=== PATIENT | female | born 1990 | race Caucasian/White ===

== ENCOUNTER → 2018-04-29 12:23 | Observation (INO) ==
[2018-04-29 09:55] VITALS: BP 137/72
[2018-04-29 10:08] LABS: Basophils % 0.2 %; Eosinophils # 0.2 K/mcL (0.0-0.6); Eosinophils % 1.3 %; Hematocrit 36.1 % (35.3-44.9); Hemoglobin 11.6 g/dL (11.5-15.4); Immature Granulocytes % 1.7 % (0-4); Lymphocytes # 1.7 K/mcL (0.6-4.6); Lymphocytes % 13.6 %; Mean Corpuscular HGB Conc 32.1 g/dL (31.6-35.5); Mean Corpuscular Hemoglobin 26.5 pg (28.0-33.3); Mean Corpuscular Volume 82.4 fL (83.0-100.0); Monocytes # 0.7 K/mcL (0.0-1.3); Monocytes % 5.6 %; Neutrophils # 9.5 K/mcL (1.6-8.9); Platelet Count 253 K/mcL (140-400); Red Blood Count 4.38 M/mcL (3.82-4.97); Red Cell Distribution Width 16.9 % (11.5-14.5); Segmented Neutrophils % 77.6 %
[2018-04-29 10:30] LABS: Amphetamine Screen,Urine Negative ng/mL (Cutoff=1000); Barbiturate Screen,Urine Negative ng/mL (Cutoff=200); Benzodiazepines Screen,Urine Negative ng/mL (Cutoff=200); Cannabinoid Screen,Urine Negative ng/mL (Cutoff = 50); Cocaine Screen,Urine Negative ng/mL (Cutoff= 300); Opiate Screen,Urine Negative ng/mL (Cutoff=300); Phencyclidine Screen,Urine Negative ng/mL (Cutoff=25); Protein/Creatinine Ratio,Urine 0.11 mg/mg (0.00-0.20)
[2018-04-29 10:35] LABS: Alanine Aminotransferase 13 Units/L (7-52); Aspartate Amino Transferase 20 Units/L (13-39); BUN/Creatinine Ratio 16 (6-26); Blood Urea Nitrogen 7 mg/dL (6-20); Uric Acid 5.7 mg/dL (2.3-7.6); eGFR For African Americans > 60 (> 60); eGFR For Non-African Americans > 60 (> 60)
--- NOTE | 2018-04-29 11:34 | OB/GYN Progress Note ---
Date of Encounter: 04/29/18 Time of Encounter: 11:29 - Assessment and Plan (1) with 35 completed weeks gestation Current Visit: Yes Status: Acute Serial BPs WNL PIH labs WNL FHR baseline 130 Reactive NST Occasional contraction per toco Discharge home with PTL precaution and pre eclampsia precautions Follow up in office for routine appointment as scheduled Subjective - Subjective Interval history: at 35 weeks and 1 day gestation presents to triage with complaints increased BP, BURGER, and "seeing spots." Denies epigastric pain. No vaginal bleeding or loss of fluid, states baby moving well. Antepartum ROS: new complaints Objective - Vital Signs Vital Signs: Vital Signs Temp Pulse Resp BP 04/29/18 09:54 97.8 F 85 18 137/72 - Exam FHR: category 1 Auscultation: bilateral: normal Abdomen: Present: soft, gravid - Labs Labs: Abnormal lab results WBC 12.3 K/mcL (4.3-11.1) H 04/29/18 09:41 MCV 82.4 fL (83.0-100.0) L 04/29/18 09:41 MCH 26.5 pg (28.0-33.3) L 04/29/18 09:41 RDW 16.9 % (11.5-14.5) H 04/29/18 09:41 Neutrophils # 9.5 K/mcL (1.6-8.9) H 04/29/18 09:41 Creatinine 0.44 mg/dL (0.60-1.20) L 04/29/18 09:41 Urine Total Protein 17 mg/dL (1-14) H 04/29/18 09:41
[~2018-04-29 12:23] MED LIST: *HR* Labetalol 20 MG/4 ML SYRINGE IVP PRN; Betamethasone Acet/SodPhos 6 MG/ML MDV IM SCH
== END | disposition home or self-care (01) ==
LOC: 1NENULAB
PROVIDERS: ADMIT Student in an Organized Health Care Education/Training Program; ATTEND Student in an Organized Health Care Education/Training Program

== ENCOUNTER 2018-05-13 08:07 | Inpatient (IN) ==
[2018-05-13] MEDS ORDERED: Metoclopramide 10 MG/2 ML VIAL IVP ONE (08:40)
[2018-05-13] MEDS ORDERED: Oxytocin 20 units/ LR 1000 mL 20 UNIT/1,000 ML BAG IVC ONE (08:40)
[2018-05-13] MEDS ORDERED: Famotidine 20 MG/2 ML VIAL IVP ONE (08:40)
[2018-05-13] MEDS ORDERED: Ringers Solution, Lactated 1,000 ML IVC ONE (08:40)
[2018-05-13] MEDS ORDERED: Ringers Solution, Lactated 1,000 ML IVC SCH ×2 (08:45→11:15)
[2018-05-13] MEDS ORDERED: Ringers Solution, Lactated 1,000 ML ONE (08:47)
[2018-05-13 09:03] LABS: Basophils % 0.2 %; Eosinophils # 0.1 K/mcL (0.0-0.6); Hematocrit 37.6 % (35.3-44.9); Hemoglobin 12.5 g/dL (11.5-15.4); Lymphocytes # 2.2 K/mcL (0.6-4.6); Lymphocytes % 17.2 %; Mean Corpuscular HGB Conc 33.2 g/dL (31.6-35.5); Mean Corpuscular Hemoglobin 27.5 pg (28.0-33.3); Mean Corpuscular Volume 82.8 fL (83.0-100.0); Mean Platelet Volume 11.6 fL (9.4-12.4); Monocytes # 0.8 K/mcL (0.0-1.3); Monocytes % 6.3 %; Neutrophils # 9.4 K/mcL (1.6-8.9); Platelet Count 269 K/mcL (140-400); Red Blood Count 4.54 M/mcL (3.82-4.97); Segmented Neutrophils % 74.3 %
--- NOTE | 2018-05-13 09:12 | Anesthesia Evaluation PreOp ---
Date of Encounter: 05/13/18 Time of Encounter: 09:00 - Past History Planned Operation: Repeat Cardiac History: HTN (Pre-Eclampsia) Pulmonary History: Denies Any Significant HX SOCIAL INSURANCE ADMINISTRATOR History: Denies Any Significant HX Other Medical History: Other (Morbid Obesity) Anesthesia History: No Prior Anesthetic Complications : Yes (37 weeks ) Alcohol Use: none Drug use: none Medications and Allergies Ascorbic Acid [Vitamin C] 1,000 mg PO DAILY 04/29/18 [History] Aspirin [Lo-Dose Aspirin EC] 81 mg PO DAILY 04/29/18 [History] Cetirizine HCl [Zyrtec] 10 mg PO DAILY 04/29/18 [History] Pnv Cmb#21/Iron/Folic Acid [ Complete Caplet] 1 each PO DAILY 04/29/18 [ History] raNITIdine HCl [Zantac] 150 mg PO BID 04/29/18 [History] Ferrous Sulfate [Iron] 325 mg PO DAILY 04/30/18 [History] Labetalol [Trandate] 200 mg PO TID 04/30/18 [History] 3 Allergy/AdvReac Type Severity Reaction Status Date / Time watermelon Allergy Cough Uncoded 05/13/18 08:34 - Meds/Allergy Pre-op Review Medications Reviewed: Yes Allergies Reviewed: Yes Beta Blockers on Current Med List: Yes (Took Labetalol today 0630) Anesthesia Results - Labs 05/13/18 08:15 Laboratory Tests 12/24/16 04/22/18 04/30/18 14:14 09:15 12:35 Hgb Hct Plt Count Sodium 138 Potassium 3.8 BUN Creatinine Ur Total Protein 24 Hr 200 H Urine Total Protein 42 H 04/30/18 05/13/18 12:55 08:15 Hgb 12.5 Hct 37.6 Plt Count 269 Sodium Potassium BUN 10 Creatinine 0.51 L Ur Total Protein 24 Hr Urine Total Protein - Imaging EKG: report reviewed (SB marked arrhythmia) Anesthesia Exam O2 Sat Height 1.57 m Weight 130.6 kg Height: 5'2 Weight: 287 lbs NPO (# of Hours): MN Pain Scale: 0 - HEENT Pupil (Motor): Pupils equal, EOMI Mallampati: II Teeth: Normal Oral Opening: Greater than 3 - SOCIAL INSURANCE ADMINISTRATOR LOC: Oriented SOCIAL INSURANCE ADMINISTRATOR Motor: Normal RUE, Normal LUE, Normal RLE, Normal LLE, Normal Face SOCIAL INSURANCE ADMINISTRATOR Sensory: Normal: RUE, LUE, RLE, LLE, Face - Cardiac Rhythm: Regular Murmur: None JVD: No Carotid Bruit: No - Pulmonary Breath Sounds: bilateral Clear Respiratory Effort: Symmetrical Anesthesia Assess/Plan ASA Score: 3 (HTN MO) Modified [place] Scale for Level of Consciousness: Cooperative, oriented, and tranquil Anesthetic Plan: Regional Monitoring Plan: Standard Monitors Recovery Plan: PACU (Discussed SAB possible GA, agrees to proceed)
[2018-05-13 09:23] LABS: Amphetamine Screen,Urine Negative ng/mL (Cutoff=1000); Barbiturate Screen,Urine Negative ng/mL (Cutoff=200); Benzodiazepines Screen,Urine Negative ng/mL (Cutoff=200); Cannabinoid Screen,Urine Negative ng/mL (Cutoff = 50); Cocaine Screen,Urine Negative ng/mL (Cutoff= 300); Opiate Screen,Urine Negative ng/mL (Cutoff=300); Phencyclidine Screen,Urine Negative ng/mL (Cutoff=25)
[2018-05-13] MEDS ORDERED: Lidocaine -MPF 1% 5 ML AMPUL ONE (09:34)
[2018-05-13] MEDS ORDERED: Bupivacaine/PF 0.75% in Dex 2 ML AMPUL INFILT ONE (09:35)
[2018-05-13] MEDS ORDERED: Morphine Sulfate/PF 5mg/10mL Vial ONE (09:36)
--- NOTE | 2018-05-13 09:46 | History & Physical Report ---
Date of Encounter: 05/13/18 Time of Encounter: 09:44 24 Hour HP Update - Instructions Instructions: If the History and Physical is less than 30 days old and was completed prior to A.M. admission and or procedure and has NOT been updated on calendar day of procedure please complete this update prior to performing procedure. - Update Patient reports changes in Medical Condition: No Changes in examination, assessment, or condition: No Changes in Medication: No Preop tests/diagnostics Reviewed: Yes Surgery Remains Indicated: Yes Consent for Planned Operative Procedure(s) Verified: Yes - Pre-Operative Checklist Preoperative Checklist Indicated: Yes Prophylactic Antibiotic Ordered: Yes Home Medications Include Beta Danis: Yes Beta Danis Taken Today (Day of Surgery): Yes Beta Danis Taken Yesterday (Day Prior to Surgery): Yes Is VTE Prophylaxis Indicated?: Yes
[2018-05-13] MEDS ORDERED: cefOXitin 3,000 MG in 0.9 % Sodium Chloride 100 ML IVPB ONE (09:47)
[2018-05-13] MEDS ORDERED: MetroNIDAZOLE 500 MG/100 ML 500 MG/100 ML BAG IVPB ONE (09:47)
[2018-05-13] MEDS ORDERED: CefOXitin 2,000 MG VIAL ONE (10:17)
--- NOTE | 2018-05-13 10:41 | Anesthesia Procedures ---
Date of Encounter: 05/13/18 Time of Encounter: 10:13 Procedures: Anesthesia - Epidural/Spinal Patient ID/Chart reviewed: Yes Patient examined: Yes OB Eval: Gestational age: 37.1 OB Eval: : 2 OB Eval: Hx Para: 1 OB Eval: Contractions: Non-stressed pattern Consent Obtained: Yes Supplemental Oxygen: None/Room Air Site Prep: Aseptic Technique, Sterile prep and drape, Povidone-Iodine 1% Patient position: upright Local Anesthetic: Lidocaine 1% Amount of Local Anesthetic used: 3 Interspace Used: L3-L4 Loss of Resistance (SAADIA): Yes Blood: No CSF: Yes Paresthesia: No Spinal Needle Gauge: 25 Spinal Dose: Marcaine 0.75% 1.6ml with Morphine 250mcg Procedure: Spinal performed in upright position. Intrathecal dose administed 1st pass without any immediate noted complications. VSS throughout. Vitals + FHT's: See anesthesia OR record
[2018-05-13] MEDS ORDERED: Ondansetron 4 MG/2 ML VIAL ONE (11:05)
[2018-05-13] MEDS ORDERED: Acetaminophen IV 1,000 MG/100 ML INFUS..BTL IVPB ONE (11:14)
[2018-05-13] MEDS ORDERED: *HR* Promethazine 25 MG/ML VIAL IVP PRN (11:14)
[2018-05-13] MEDS ORDERED: Naloxone 0.4 MG/ML INJ IVP PRN (11:14)
[2018-05-13] MEDS ORDERED: Ondansetron 4 MG/2 ML VIAL IVP ONE (11:14)
[2018-05-13] MEDS ORDERED: *HR* Meperidine 25 MG/ML SYRINGE IVP PRN (11:14)
[2018-05-13] MEDS ORDERED: *HR* Labetalol 20 MG/4 ML SYRINGE IVP PRN (11:14)
[2018-05-13] MEDS ORDERED: *HR* OxyCODONE Immed Rel 5 MG TABLET PO PRN (11:14)
[2018-05-13] MEDS ORDERED: Dexamethasone 4 MG/ML VIAL ONE (11:51)
--- NOTE | 2018-05-13 12:11 | OB/GYN Procedure Note ---
Section - Date of procedure: 05/13/18 Preop diagnosis: desires repeat (BMI 52.7, preeclampsia, previous section) Post-op diagnosis: same (Dense omental adhesions, anterior uterine adhesions) Procedure: repeat low transverse (Lysis of omental and uterine adhesions for 30 minutes) Surgeon: Anali Byrnes Blood Loss: 500 Was there an occupational therapist assistants present: No Anesthesiologist: Pritesh Griffith Security Software Engineer: Te Mejía Anesthesia Type: Spinal section complications: none, other Disposition: L&D Recovery Room Specimens: Placenta, Cord segment - (s) Infant A Delivery Date: 05/13/18 Infant Delivery Time: 10:59 Presentation: vertex Position: [place] Route of delivery: other ( section) Gender: Male Viability: Viable Pounds: 8 Ounces: 2 Gram Weight: 3.69 kg at 1 minute: 9 at 5 minutes: 9 Shoulder Dystocia: not encountered Placenta: spontaneous, uterine exploration Cord: nuchal cord, 3 umbilical vessels, nuchal reduced - Narrative Narrative: The patient was taken to the operating room and given spinal anesthesia adequate for abdominal and pelvic surgery. The was prepped and draped in the usual sterile fashion. Timeout was completed. A Pfannenstiel skin incision was made through the previous scar. The subcutaneous tissue was sharply dissected down to the fascia. The fascia was incised in the midline and extended bilaterally with Ramsey scissors.. 2 straight Webster clamps were placed on the inferior fascial edge and the fascia was bluntly and sharply dissected away from the rectus muscles. This was repeated superiorly. The omentum was visualized adherent along the length of the incision bilaterally. This was then sharply and bluntly lysed on both sides to free up the omentum. Hemostasis achieved. A dense midline uterine adhesion was also identified that was adherent anteriorly. This was lysed with the Bovie and hemostasis achieved. Bladder blade was placed to protect the bladder. Vesicouterine peritoneum was incised and reflected inferiorly, and the bladder blade was replaced to protect the bladder. A transverse incision was then made in the lower uterine segment down to the amnion which was extended in a U fashion with bandage scissors. The amnion was bluntly entered with an Allis clamp. Clear fluid was seen. This was followed by the vertex delivery of a viable and vigorous male infant weighing 8#2 oz with Apgars of 9 at 1 minute and 9 at 5 minutes. Infant was placed on the maternal abdomen. The cord was clamped and cut after a delay. was handed to the nursery care team. The placenta was delivered spontaneous and intact. The uterine cavity was digitally palpated and wiped clean with a moist lap sponge. There were no placental remnants identified. A ring forcep was used to make sure the cervix was dilated and then this was discarded off the field. Clamps were placed on the uterine angles and the uterine incision was closed using 0 Vicryl suture in a running, locking fashion. Gloves were changed. A second imbricating layer completed the uterine closure with 0 Vicryl suture. The uterus was then examined and noted to be hemostatic. The pelvis was then irrigated with a copious amount of sterile water. Again, good hemostasis was identified. Tubes and ovaries were inspected and noted to be grossly normal. There was still omentum adherent to the anterior abdominal wall and the rest of this was lysed with the Bovie and good hemostasis achieved. The peritoneal edges, omentum and rectus muscles were then examined and hemostasis achieved. The fascia was then closed using 0 PDS loop in a running, nonlocking fashion. Subcutaneous tissue was irrigated with sterile water, good hemostasis was achieved. The subcuticular layer was closed using oh straw to fix in a running nonlocking fashion. The skin was then closed using a 4-0 Monocryl in a running subcuticular fashion. Mesh with Dermabond was then placed over the incision to complete the closure. A dressing was placed. Estimated blood loss was 500cc. The Jaquez was noted to be draining clear yellow urine at the end of the procedure. All sponge and instrument counts are correct at the end of the procedure. The patient was taken to the recovery room in stable condition.
[2018-05-13] MEDS ORDERED: Oxytocin 20 units/ LR 1000 mL 20 UNIT/1,000 ML BAG IVC SCH (14:14)
[2018-05-13] MEDS ORDERED: Metoclopramide 10 MG/2 ML VIAL IVP PRN (14:14)
[2018-05-13] MEDS ORDERED: *HR* OxyCODONE/APAP 5/325 TABLET PO PRN (14:14)
[2018-05-13] MEDS ORDERED: Sennosides 8.6 MG TABLET PO PRN (14:14)
[2018-05-13] MEDS ORDERED: Simethicone 80 MG TAB.CHEW PO PRN (14:14)
[2018-05-13] MEDS ORDERED: Ondansetron 4 MG/2 ML VIAL IVP PRN (14:14)
[2018-05-13 14:40] LABS: Alanine Aminotransferase 13 Units/L (7-52); Aspartate Amino Transferase 13 Units/L (13-39); BUN/Creatinine Ratio 18 (6-26); Blood Urea Nitrogen 10 mg/dL (6-20); Lactate Dehydrogenase 173 Units/L (140-271); Uric Acid 7.2 mg/dL (2.3-7.6); eGFR For African Americans > 60 (> 60); eGFR For Non-African Americans > 60 (> 60)
[2018-05-13] MEDS: Oxytocin 20 units/ LR 1000 mL 20 UNIT/1,000 ML BAG IVC SCH ×2 (15:30→23:47)
[2018-05-13] MEDS: cephALEXin 500 MG CAPSULE PO SCH (20:38)
[2018-05-13] MEDS ORDERED: cephALEXin 500 MG CAPSULE PO SCH (21:00)
[2018-05-14] MEDS: Ibuprofen 600 MG TABLET PO PRN ×3 (00:08→19:37)
[2018-05-14 05:46] LABS: Basophils % 0.2 %; Eosinophils % 0.4 %; Hematocrit 30.8 % (35.3-44.9); Immature Granulocytes % 0.7 % (0-4); Lymphocytes # 1.7 K/mcL (0.6-4.6); Lymphocytes % 15.6 %; Mean Corpuscular HGB Conc 33.4 g/dL (31.6-35.5); Mean Corpuscular Hemoglobin 28.1 pg (28.0-33.3); Mean Corpuscular Volume 84.2 fL (83.0-100.0); Mean Platelet Volume 10.9 fL (9.4-12.4); Monocytes # 0.6 K/mcL (0.0-1.3); Neutrophils # 8.2 K/mcL (1.6-8.9); Platelet Count 160 K/mcL (140-400); Red Blood Count 3.66 M/mcL (3.82-4.97); Segmented Neutrophils % 77.1 %
[2018-05-14 05:48] LABS: Hemoglobin 10.3 g/dL (11.5-15.4)
[2018-05-14 06:00] LABS: Alanine Aminotransferase 11 Units/L (7-52); Aspartate Amino Transferase 20 Units/L (13-39); BUN/Creatinine Ratio 14 (6-26); Blood Urea Nitrogen 8 mg/dL (6-20); Lactate Dehydrogenase 208 Units/L (140-271); Uric Acid 7.2 mg/dL (2.3-7.6); eGFR For African Americans > 60 (> 60); eGFR For Non-African Americans > 60 (> 60)
--- NOTE | 2018-05-14 06:28 | Anesthesia Evaluation Post Op ---
Date of Encounter: 05/13/18 Time of Encounter: 12:00 - Vital Signs Vital Signs: Vital Signs Temperature 97.8 F 05/13/18 14:05 Pulse Rate 76 05/13/18 14:05 Respiratory Rate 14 05/13/18 14:05 Blood Pressure 132/85 05/13/18 14:05 O2 Sat by Pulse Oximetry 98 05/13/18 14:05 Temperature 98.5 F 05/14/18 04:15 Pulse Rate 79 05/14/18 04:15 Respiratory Rate 16 05/14/18 04:15 Blood Pressure 122/83 05/14/18 04:15 O2 Sat by Pulse Oximetry 98 05/14/18 04:15 - Lungs Lungs: Clear Ascult./Percussion - Airway Airway: Non-obstructed - Cardiovascular Regular Rate - Mental Status Mental Status: Alert & Oriented, Answers Appropriately - Pain Pain Scale: 2 Pain Scale used: Numeric (1 - 10) - Nausea Vomiting Nausea Vomiting: Not Present - Hydration Hydration: NPO, Jaquez catheter - Discharge PostOp Status: Transfer Patient to floor
--- NOTE | 2018-05-14 08:39 | OB/GYN Progress Note ---
Date of Encounter: 05/14/18 Time of Encounter: 08:37 Subjective - Subjective Principal diagnosis: POD1 rpt c/s Interval history: The patient is postop day 1 from a repeat . She is reporting only needing ibuprofen and has had good oral pain control. She is tolerating a regular diet without nausea or vomiting. She is passing flatus. She reports no concerns. Her is breast-feeding well. She has no headaches, blurred vision or epigastric pain. She reports mild lower extremity edema Patient reports: appetite normal, voiding normally, pain well controlled, ambulating normally : doing well, nursing well Objective - Vital Signs Latest vital signs: Vital Signs Temp Pulse Resp BP Pulse Ox 05/14/18 07:54 98.0 F 98 14 138/88 98 05/14/18 04:15 98.5 F 79 16 122/83 98 05/13/18 23:49 98.7 F 88 16 135/85 98 05/13/18 20:37 98.7 F 74 16 128/78 97 05/13/18 17:05 97.8 F 68 20 135/84 98 05/13/18 16:00 98.3 F 80 18 136/84 96 05/13/18 15:05 98.6 F 77 20 131/83 05/13/18 14:35 98.2 F 67 20 122/74 98 05/13/18 14:05 97.8 F 76 14 132/85 98 Intake and Output 05/13/18 05/14/18 05/14/18 23:59 07:59 15:59 Intake Total 2220 / 2220 0 / 0 Output Total 850 / 850 300 / 300 Balance 1370 / 1370 -300 / -300 Intake: IV Fluids 1000 / 1000 Pitocin 20 unit In 1,000 ml @ 1000 / 1000 125 mls/hr IVC .Q8H KEMI Rx#: [id number] Oral 1220 / 1220 0 / 0 Output: Catheter 850 / 850 300 / 300 Other: Meal Dinner Percent of Meal Consumed 40% Stool Characteristics Normal for Patient Weight 126.099 kg Patient Weight 05/14/18 23:59 Weight 126.099 kg - Exam Lungs: bilateral: normal Chest: Normal S1, Normal S2 Extremities: Present: edema. Absent: tenderness Abdomen: Present: normal appearance, soft, tenderness (Minimal) Incision: Present: dry, intact, dressed Uterus: Present: firm (@U) Comments: Prescriptions for discharge have been printed and given to patient - Labs Labs: Laboratory Results - last 24 hr 05/13/18 05/13/18 05/13/18 08:15 08:15 08:15 WBC 12.6 H RBC 4.54 Hgb 12.5 Hct 37.6 MCV 82.8 L MCH 27.5 L MCHC 33.2 RDW 17.0 H Plt Count 269 MPV 11.6 Immature Gran % 1.0 Seg Neutrophils % 74.3 Lymphocytes % 17.2 Monocytes % 6.3 Eosinophils % 1.0 Basophils % 0.2 Neutrophils # 9.4 H Lymphocytes # 2.2 Monocytes # 0.8 Eosinophils # 0.1 Basophils # 0.0 BUN 10 Creatinine 0.55 L Est GFR ( Amer) > 60 Est GFR (Non-Af Amer) > 60 BUN/Creatinine Ratio 18 Uric Acid 7.2 AST 13 ALT 13 Lactate Dehydrogenase 173 Urine Opiates Screen Negative Ur Barbiturates Screen Negative Ur Phencyclidine Scrn Negative Ur Amphetamines Screen Negative U Benzodiazepines Scrn Negative Urine Cocaine Screen Negative U Marijuana (THC) Screen Negative 05/14/18 05/14/18 05:29 05:29 WBC 10.6 RBC 3.66 L Hgb 10.3 L D Hct 30.8 L MCV 84.2 MCH 28.1 MCHC 33.4 RDW 17.0 H Plt Count 160 MPV 10.9 Immature Gran % 0.7 Seg Neutrophils % 77.1 Lymphocytes % 15.6 Monocytes % 6.0 Eosinophils % 0.4 Basophils % 0.2 Neutrophils # 8.2 Lymphocytes # 1.7 Monocytes # 0.6 Eosinophils # 0.0 Basophils # 0.0 BUN 8 Creatinine 0.56 L Est GFR ( Amer) > 60 Est GFR (Non-Af Amer) > 60 BUN/Creatinine Ratio 14 Uric Acid 7.2 AST 20 ALT 11 Lactate Dehydrogenase 208 Urine Opiates Screen Ur Barbiturates Screen Ur Phencyclidine Scrn Ur Amphetamines Screen U Benzodiazepines Scrn Urine Cocaine Screen U Marijuana (THC) Screen - Allied health notes Allied health notes reviewed: nursing
[2018-05-14] MEDS ORDERED: Azithromycin 250 MG TABLET PO SCH (09:00)
[2018-05-14] MEDS ORDERED: Prenatal Vit/FA 1 EACH TABLET PO SCH (09:00)
[2018-05-14] MEDS: cephALEXin 500 MG CAPSULE PO SCH ×2 (09:47→19:38)
[2018-05-14] MEDS: Azithromycin 250 MG TABLET PO SCH (09:47)
[2018-05-14] MEDS ORDERED: Acetaminophen 325 MG TABLET PO ONE (17:29)
[2018-05-15] MEDS ORDERED: Acetaminophen 325 MG TABLET PO PRN (00:14)
[2018-05-15] MEDS: Ondansetron ODT 4 MG TAB.RAPDIS SL PRN ×3 (00:20→13:49)
[2018-05-15] MEDS: Ibuprofen 600 MG TABLET PO PRN ×3 (01:32→13:51)
[2018-05-15] MEDS: cephALEXin 500 MG CAPSULE PO SCH (07:55)
[2018-05-15] MEDS: Azithromycin 250 MG TABLET PO SCH (07:55)
--- NOTE | 2018-05-15 10:12 | Discharge Summary ---
Date of Encounter: 05/15/18 Time of Encounter: 10:05 - Discharge Diagnosis (1) Delivered by section Priority: Primary Status: Acute Comments: Doing well. Voiding and ambulating without difficulty.Tolerating regular diet, states having mild nausea this morning. Passing gas, has had BM with no problems. Denies BURGER, visual disturbance or epigastric pain. Lochia light and without clots. Incision well approximated with no redness or drainage. States pain well controlled with po meds. in arms, states breast feeding well. Desires to be discharged today - Discharge Medications Prescriptions: OxyCODONE/APAP 5/325 [Percocet 5/325 MG] 1 each PO Q4HR PRN 7 Days #40 tablet PRN Reason: Moderate pain 4-6 Ibuprofen 800 mg PO Q8HR PRN #30 tablet PRN Reason: Pain Azithromycin [Zithromax] 250 mg PO DAILY #7 tablet Cephalexin [Keflex] 1,000 mg PO BID 7 Days capsule Home Medications: Ascorbic Acid [Vitamin C] 1,000 mg PO DAILY 04/29/18 [History] Aspirin [Lo-Dose Aspirin EC] 81 mg PO DAILY 04/29/18 [History] Cetirizine HCl [Zyrtec] 10 mg PO DAILY 04/29/18 [History] Pnv Cmb#21/Iron/Folic Acid [ Complete Caplet] 1 each PO DAILY 04/29/18 [ History] raNITIdine HCl [Zantac] 150 mg PO BID 04/29/18 [History] Ferrous Sulfate [Iron] 325 mg PO DAILY 04/30/18 [History] Labetalol [Trandate] 200 mg PO TID 04/30/18 [History] Azithromycin [Zithromax] 250 mg PO DAILY #7 tablet 05/14/18 [Rx] Cephalexin [Keflex] 1,000 mg PO BID 7 Days capsule 05/14/18 [Rx] Ibuprofen 800 mg PO Q8HR PRN #30 tablet 05/14/18 [Rx] OxyCODONE/APAP 5/325 [Percocet 5/325 MG] 1 each PO Q4HR PRN 7 Days #40 tablet [Rx] Allergies/Adverse Reactions: 3 Allergy/AdvReac Type Severity Reaction Status Date / Time watermelon Allergy Cough Uncoded 05/13/18 08:34 Data Procedures and tests throughout hospitalization: Laboratory Tests 05/13/18 05/13/18 05/13/18 08:15 08:15 08:15 WBC 12.6 H RBC 4.54 Hgb 12.5 Hct 37.6 MCV 82.8 L MCH 27.5 L MCHC 33.2 RDW 17.0 H Plt Count 269 MPV 11.6 Immature Gran % 1.0 Seg Neutrophils % 74.3 Lymphocytes % 17.2 Monocytes % 6.3 Eosinophils % 1.0 Basophils % 0.2 Neutrophils # 9.4 H Lymphocytes # 2.2 Monocytes # 0.8 Eosinophils # 0.1 Basophils # 0.0 BUN 10 Creatinine 0.55 L Est GFR ( Amer) > 60 Est GFR (Non-Af Amer) > 60 BUN/Creatinine Ratio 18 Uric Acid 7.2 AST 13 ALT 13 Lactate Dehydrogenase 173 Urine Opiates Screen Negative Ur Barbiturates Screen Negative Ur Phencyclidine Scrn Negative Ur Amphetamines Screen Negative U Benzodiazepines Scrn Negative Urine Cocaine Screen Negative U Marijuana (THC) Screen Negative 05/14/18 05/14/18 05:29 05:29 WBC 10.6 RBC 3.66 L Hgb 10.3 L D Hct 30.8 L MCV 84.2 MCH 28.1 MCHC 33.4 RDW 17.0 H Plt Count 160 MPV 10.9 Immature Gran % 0.7 Seg Neutrophils % 77.1 Lymphocytes % 15.6 Monocytes % 6.0 Eosinophils % 0.4 Basophils % 0.2 Neutrophils # 8.2 Lymphocytes # 1.7 Monocytes # 0.6 Eosinophils # 0.0 Basophils # 0.0 BUN 8 Creatinine 0.56 L Est GFR ( Amer) > 60 Est GFR (Non-Af Amer) > 60 BUN/Creatinine Ratio 14 Uric Acid 7.2 AST 20 ALT 11 Lactate Dehydrogenase 208 Urine Opiates Screen Ur Barbiturates Screen Ur Phencyclidine Scrn Ur Amphetamines Screen U Benzodiazepines Scrn Urine Cocaine Screen U Marijuana (THC) Screen Date of admission: 05/13/18 08:07 Primary care physician: Celestina Poole CNP Discharging clinician: Fani Sharma Anticipated date of discharge: 05/15/18 - Patient Status Disposition: Home, Self-Care Condition: Good Functional capacity at discharge: independent ambulation Overall status at discharge: patient is progressing back to baseline - Discharge Instructions Follow Up With: Celestina Poole CNP [Primary Care Provider] - Anali Li MD [Partnered Physician] - - Diet and Activity Activity: resume usual activities as tolerated Diet: advance to your usual diet Hospital Course Reason for admission: section, IUP at term, pre-eclampsia Delivery: section complications: none Discharge diagnosis: IUP at term delivered [place] baby: male Time spent discussing smoking cessation with patient: 3 to 10 minutes Time Attestation: Total time spent providing and/or coordinating discharge services: Time Spent: Less than 30 minutes - VTE Documentation of Mechanical Device: Intermittent pneumatic compression device Exam - Constitutional Vitals: Temp Pulse Resp BP Pulse Ox 98.0 F 100 16 153/95 98 05/15/18 08:01 05/15/18 08:01 05/15/18 08:01 05/15/18 08:01 05/15/18 08:01 General appearance IM: cooperative, A&O X 3, pleasant, answers questions appropriately - Respiratory Respiratory exam: Present: CTAB - Cardiovascular Cardiovascular exam IM: Present: RRR - GI/Abdominal GI/Abdominal exam IM: normal bowel sounds Incision: normal, intact - Rectal Rectal exam: deferred - Uterine Tone: Firm Uterus Position: 1 Finger Below Umbilicus, Midline - Extremities Exam Extremities exam IM: Present: full ROM, normal inspection, radial pulses palpable and symmetrical - Neurological Exam Neurological exam: alert, normal gait, oriented X3
[2018-05-15 11:00] VITALS: BP 148/96
== END 2018-05-15 14:26 | disposition home or self-care (01) | DRG 765 ==
LOC: 1NENULAB 08:07 → 1NENUOBS 14:21
PROVIDERS: ADMIT Obstetrics & Gynecology; ATTEND Obstetrics & Gynecology

== ENCOUNTER 2018-05-18 13:12 | Observation (INO) ==
--- NOTE | 2018-05-18 13:34 | Emergency Department Note ---
Disposition Clinical Impression: Elevated blood pressure reading Pre-eclampsia Qualifiers: Trimester: unspecified trimester Qualified Code(s): O14.90 - Unspecified pre- eclampsia, unspecified trimester Disposition: Admitted As Inpatient Condition: Fair Time of Disposition: 15:13 HPI - General Chief complaint: ED OB/Uterine Contractions Stated complaint: 5 days PP, hypertension, headache Time Seen by Provider: 05/18/18 13:27 Source: patient Mode of arrival: ambulatory Limitations: no limitations Nursing Notes Reviewed: Yes Vital Signs Reviewed: Yes - History of Present Illness HPI Narrative: Concern about status. 28-year-old female since 5 days for concerns of elevated blood pressure. Patient does have a history of preeclampsia with prior pregnancies and was preeclamptic with last and had a at 37 weeks. Patient states that she has been on low basal 200 mg 3 times a day. Patient notes that her blood pressures continue to be elevated. Patient discussed the case with Dr. Pérez who is on-call told the patient to take an extra dose of labetalol. Patient took an action dose of labetalol which does not improve her symptoms. Patient also reports headache this started this morning. Denies any vision changes. Denies any shortness of breath or chest pain. Patient denies any urinary complaints but does note lower leg swelling. Denies any abdominal pain or nausea vomiting. - Related Data Home Medications Medication Instructions Recorded Confirmed Ascorbic Acid [Vitamin C] 1,000 mg PO DAILY 04/29/18 05/18/18 Cetirizine HCl [Zyrtec] 10 mg PO DAILY 04/29/18 05/18/18 Pnv Cmb#21/Iron/Folic Acid 1 each PO DAILY 04/29/18 05/18/18 [ Complete Caplet] raNITIdine HCl [Zantac] 150 mg PO BID 04/29/18 05/18/18 Ferrous Sulfate [Iron] 325 mg PO DAILY 04/30/18 05/18/18 Labetalol [Trandate] 200 mg PO TID 04/30/18 05/18/18 Previous Rx's Medication Instructions Recorded Ibuprofen 800 mg PO Q8HR PRN #30 tablet 05/14/18 OxyCODONE/APAP 5/325 [Percocet 1 each PO Q4HR PRN 7 Days #40 05/14/18 5/325 MG] tablet Allergies Allergy/AdvReac Type Severity Reaction Status Date / Time watermelon Allergy Cough Uncoded 05/13/18 08:34 All systems ED: reviewed and negative except as stated. Constitutional: Denies: fever Cardiovascular: Denies: chest pain Respiratory: Denies: cough, dyspnea Gastrointestinal: Denies: abdominal pain, nausea, vomiting Neurological: Reports: headache PMH - Social History Smoking Status: Never smoker Alcohol use: Reports: none Drug use: Reports: none Physical Exam - General Limitations: no limitations General appearance: alert, in no apparent distress - Head Head exam: atraumatic, normocephalic, normal inspection - Eye Eye exam: Present: normal appearance, PERRL, EOMI - ENT ENT exam: normal exam, normal oropharynx, mucous membranes moist - Neck Neck exam: Present: normal inspection - Chest Chest inspection: Present: normal inspection, symmetric chest wall rise - Respiratory Respiratory exam: Present: normal lung sounds bilaterally. Absent: respiratory distress - Cardiovascular Cardiovascular exam: Present: regular rate, normal rhythm, normal heart sounds - Abdominal Exam Abdominal exam: Present: soft, Non-Tender, other (Healing lower abdominal incision consistent with recent with no erythema or crepitus.). Absent: tenderness, distention, guarding, rebound, rigidity - Extremities Exam Extremities exam: Present: normal inspection, pedal edema (Trace) - Expanded Lower Extremity Exam Neurovascular/Tendon exam: Present: normal capillary refill. Absent: pulse deficit - Neurological Exam Neurological exam: Present: alert, oriented X3, CN II-XII intact - Skin Skin exam: Present: warm, dry, intact, normal color Course Course Narrative: Patient seen and examined. Patient does have concerning signs or symptoms with preeclampsia. Patient does have an elevated blood pressure at triage. Patient will get labs as well as a urinalysis. Will discuss the case with OB. Patient will be given appropriate amount of blood pressure control. - Reevaluation(s) Reevaluation #1: Patient seen and examined. Patient's latest blood pressures systolic 162. Patient's in no acute distress. Seizure precautions are in place. Patient will be admitted to [facility]EL[facility]CHN[facility] service. Time: 15:13 - Consultations Consultation #1: Spoke with Noa, from [facility]ELOPMENT TECHNIC[facility] who recommends magnesium as well as labetalol or hydralazine. Patient will be admitted to the OB service for continued monitoring. Time: 13:42 Vital Signs Temperature 99.7 F H 05/18/18 13:14 Pulse Rate 68 05/18/18 13:14 Respiratory Rate 18 05/18/18 13:14 Blood Pressure 195/102 05/18/18 13:14 O2 Sat by Pulse Oximetry 98 05/18/18 13:14 Temperature 99.7 F H 05/18/18 13:51 Pulse Rate 70 05/18/18 14:36 Respiratory Rate 18 05/18/18 14:36 Blood Pressure 155/88 05/18/18 14:36 O2 Sat by Pulse Oximetry 98 05/18/18 14:36 Oxygen Delivery Oxygen Delivery Room Air OB/Uterine Contractions - MDM Narrative Medical decision making narrative: Patient is 5 days and presents with concerns of preeclampsia. Clinically the patient does have preeclampsia with headache as well as elevated blood pressure in the 190 systolic. Does have a history of preeclampsia prior pregnancies. Patient's been on labetalol at home as failed outpatient therapy. Discussed the case initially with OB upon patient arrival. Patient was admitted the OB service. Patient was loaded with magnesium and then placed on a drip. Patient was also given bolus doses of hydralazine. Patient's blood pressure improved during the ED course. Patient did have PIH labs obtained. Patient will be observed to ensure symptom resolution in inpatient management of the patient's blood pressure. - Lab Data Result diagrams: 05/18/18 14:03 05/18/18 14:03 Lab Results 05/18/18 05/18/18 Range/Units 14:03 14:03 WBC 9.9 (4.3-11.1) K/mcL RBC 3.93 (3.82-4.97) M/mcL Hgb 10.9 L (11.5-15.4) g/dL Hct 33.3 L (35.3-44.9) % MCV 84.7 (83.0-100.0) fL MCH 27.7 L (28.0-33.3) pg MCHC 32.7 (31.6-35.5) g/dL RDW 16.2 H (11.5-14.5) % Plt Count 329 D (140-400) K/mcL MPV 10.9 (9.4-12.4) fL Immature Gran % 0.8 (0-4) % Seg Neutrophils % 73.6 % Lymphocytes % 17.2 % Monocytes % 5.5 % Eosinophils % 2.5 % Basophils % 0.4 % Neutrophils # 7.3 (1.6-8.9) K/mcL Lymphocytes # 1.7 (0.6-4.6) K/mcL Monocytes # 0.6 (0.0-1.3) K/mcL Eosinophils # 0.3 (0.0-0.6) K/mcL Basophils # 0.0 (0.0-0.2) K/mcL Sodium 140 (136-145) mEq/L Potassium 3.8 (3.5-5.1) mEq/L Chloride 109 H (98-107) mEq/L Carbon Dioxide 22 L (23-29) mEq/L BUN 8 (6-20) mg/dL Creatinine 0.60 (0.60-1.20) mg/dL Est GFR ( Amer) > 60 (> 60) Est GFR (Non-Af Amer) > 60 (> 60) BUN/Creatinine Ratio 13 (6-26) Glucose 79 (70-105) mg/dL Calculated Osmolality 287 (280-300) Uric Acid 7.6 (2.3-7.6) mg/dL Calcium 9.2 (8.6-10.3) mg/dL Total Bilirubin 0.4 (0.3-1.0) mg/dL AST 27 (13-39) Units/L ALT 31 (7-52) Units/L Alkaline Phosphatase 91 (34-104) Units/L Serum Total Protein 6.8 (6.4-8.9) g/dL Albumin 3.5 (3.5-5.7) g/dL Globulin 3.3 (2.4-3.5) g/dL Albumin/Globulin Ratio 1.1 (1.1-2.2) - EKG Data EKG attestation: Yes I reviewed and interpreted this EKG. EKG shows normal: sinus rhythm Rate: normal Rhythm: NSR Shirley/QRS: normal Q waves: III QRS morphology: other (411) Interpretation: no acute changes, nonspecific ST-T wave changes
[2018-05-18 14:32] LABS: Basophils % 0.4 %; Eosinophils # 0.3 K/mcL (0.0-0.6); Eosinophils % 2.5 %; Hematocrit 33.3 % (35.3-44.9); Hemoglobin 10.9 g/dL (11.5-15.4); Immature Granulocytes % 0.8 % (0-4); Lymphocytes # 1.7 K/mcL (0.6-4.6); Lymphocytes % 17.2 %; Mean Corpuscular HGB Conc 32.7 g/dL (31.6-35.5); Mean Corpuscular Hemoglobin 27.7 pg (28.0-33.3); Mean Corpuscular Volume 84.7 fL (83.0-100.0); Mean Platelet Volume 10.9 fL (9.4-12.4); Monocytes # 0.6 K/mcL (0.0-1.3); Monocytes % 5.5 %; Neutrophils # 7.3 K/mcL (1.6-8.9); Platelet Count 329 K/mcL (140-400); Red Blood Count 3.93 M/mcL (3.82-4.97); Red Cell Distribution Width 16.2 % (11.5-14.5); Segmented Neutrophils % 73.6 %
[2018-05-18 14:50] LABS: Alanine Aminotransferase 31 Units/L (7-52); Albumin 3.5 g/dL (3.5-5.7); Albumin/Globulin Ratio 1.1 (1.1-2.2); Alkaline Phosphatase 91 Units/L (34-104); Aspartate Amino Transferase 27 Units/L (13-39); BUN/Creatinine Ratio 13 (6-26); Bilirubin,Total 0.4 mg/dL (0.3-1.0); Blood Urea Nitrogen 8 mg/dL (6-20); Calcium 9.2 mg/dL (8.6-10.3); Carbon Dioxide 22 mEq/L (23-29); Chloride 109 mEq/L (98-107); Globulin 3.3 g/dL (2.4-3.5); Glucose 79 mg/dL (70-105); Osmolality,Calculated 287 (280-300); Potassium 3.8 mEq/L (3.5-5.1); Sodium 140 mEq/L (136-145); Total Protein 6.8 g/dL (6.4-8.9); Uric Acid 7.6 mg/dL (2.3-7.6); eGFR For African Americans > 60 (> 60); eGFR For Non-African Americans > 60 (> 60)
[2018-05-18] MEDS ORDERED: Calcium Gluconate 1,000 MG/10 ML VIAL IVPB PRN (15:37)
[2018-05-18] MEDS ORDERED: *HR* HYDROcodone/Acet 5/325 mg TABLET PO PRN (15:37)
[2018-05-18] MEDS ORDERED: *HR* OxyCODONE/APAP 5/325 TABLET PO PRN (15:37)
[2018-05-18] MEDS ORDERED: Ringers Solution, Lactated 500 ML IVC SCH (16:00)
[2018-05-18] MEDS ORDERED: Ringers Solution, Lactated 1,000 ML ONE ×2 (16:19→16:23)
[2018-05-18] MEDS: Acetaminophen 325 MG TABLET PO PRN ×2 (16:23→22:11)
[2018-05-18] MEDS: Magnesium Sulfate 20 gm/500mL 20 GM/500 ML IV.SOLN IVC SCH (16:24)
--- NOTE | 2018-05-18 16:54 | Emergency Department Note ---
Disposition Clinical Impression: Elevated blood pressure reading Pre-eclampsia Qualifiers: Trimester: unspecified trimester Qualified Code(s): O14.90 - Unspecified pre- eclampsia, unspecified trimester Disposition: Admitted As Inpatient Condition: Fair General Adult HPI - General Chief complaint: ED OB/Uterine Contractions Stated complaint: 5 days PP, hypertension, headache Time Seen by Provider: 05/18/18 13:27 Source: patient Mode of arrival: ambulatory Limitations: no limitations - History of Present Illness Pain Scale: 1 - Related Data Home Medications Medication Instructions Recorded Confirmed Ascorbic Acid [Vitamin C] 1,000 mg PO DAILY 04/29/18 05/18/18 Cetirizine HCl [Zyrtec] 10 mg PO DAILY 04/29/18 05/18/18 Pnv Cmb#21/Iron/Folic Acid 1 each PO DAILY 04/29/18 05/18/18 [ Complete Caplet] raNITIdine HCl [Zantac] 150 mg PO BID 04/29/18 05/18/18 Ferrous Sulfate [Iron] 325 mg PO DAILY 04/30/18 05/18/18 Labetalol [Trandate] 200 mg PO TID 04/30/18 05/18/18 Previous Rx's Medication Instructions Recorded Ibuprofen 800 mg PO Q8HR PRN #30 tablet 05/14/18 OxyCODONE/APAP 5/325 [Percocet 1 each PO Q4HR PRN 7 Days #40 05/14/18 5/325 MG] tablet Allergies Allergy/AdvReac Type Severity Reaction Status Date / Time watermelon Allergy Cough Uncoded 05/13/18 08:34 Constitutional: Denies: fever Cardiovascular: Denies: chest pain Respiratory: Denies: cough, dyspnea Gastrointestinal: Denies: abdominal pain, nausea, vomiting Neurological: Reports: headache Past Medical History - Past Medical History Medical history: Reports: hypertension, migraine Surgical history: Reports: appendectomy, , cholecystectomy Psychiatric history: Reports: anxiety : 2 Para: 2 - Social History Smoking Status: Never smoker Smokeless Tobacco Status: No Alcohol use: Reports: none Drug use: Reports: none Physical Exam - General Limitations: no limitations General appearance: alert, in no apparent distress Course Vital Signs Temperature 99.7 F H 05/18/18 13:14 Pulse Rate 68 05/18/18 13:14 Respiratory Rate 18 05/18/18 13:14 Blood Pressure 195/102 05/18/18 13:14 O2 Sat by Pulse Oximetry 98 05/18/18 13:14 Temperature 98.5 F 05/18/18 16:00 Pulse Rate 102 05/18/18 16:00 Respiratory Rate 16 05/18/18 16:04 Blood Pressure 139/85 05/18/18 16:04 O2 Sat by Pulse Oximetry 98 05/18/18 16:00 Oxygen Delivery Oxygen Delivery Room Air Medical Decision Making - Lab Data Result diagrams: 05/18/18 14:03 05/18/18 14:03 Lab Results 05/18/18 05/18/18 Range/Units 14:03 14:03 WBC 9.9 (4.3-11.1) K/mcL RBC 3.93 (3.82-4.97) M/mcL Hgb 10.9 L (11.5-15.4) g/dL Hct 33.3 L (35.3-44.9) % MCV 84.7 (83.0-100.0) fL MCH 27.7 L (28.0-33.3) pg MCHC 32.7 (31.6-35.5) g/dL RDW 16.2 H (11.5-14.5) % Plt Count 329 D (140-400) K/mcL MPV 10.9 (9.4-12.4) fL Immature Gran % 0.8 (0-4) % Seg Neutrophils % 73.6 % Lymphocytes % 17.2 % Monocytes % 5.5 % Eosinophils % 2.5 % Basophils % 0.4 % Neutrophils # 7.3 (1.6-8.9) K/mcL Lymphocytes # 1.7 (0.6-4.6) K/mcL Monocytes # 0.6 (0.0-1.3) K/mcL Eosinophils # 0.3 (0.0-0.6) K/mcL Basophils # 0.0 (0.0-0.2) K/mcL Sodium 140 (136-145) mEq/L Potassium 3.8 (3.5-5.1) mEq/L Chloride 109 H (98-107) mEq/L Carbon Dioxide 22 L (23-29) mEq/L BUN 8 (6-20) mg/dL Creatinine 0.60 (0.60-1.20) mg/dL Est GFR ( Amer) > 60 (> 60) Est GFR (Non-Af Amer) > 60 (> 60) BUN/Creatinine Ratio 13 (6-26) Glucose 79 (70-105) mg/dL Calculated Osmolality 287 (280-300) Uric Acid 7.6 (2.3-7.6) mg/dL Calcium 9.2 (8.6-10.3) mg/dL Total Bilirubin 0.4 (0.3-1.0) mg/dL AST 27 (13-39) Units/L ALT 31 (7-52) Units/L Alkaline Phosphatase 91 (34-104) Units/L Serum Total Protein 6.8 (6.4-8.9) g/dL Albumin 3.5 (3.5-5.7) g/dL Globulin 3.3 (2.4-3.5) g/dL Albumin/Globulin Ratio 1.1 (1.1-2.2) Attestation Statement - Attestation Attestation: I examined this patient and my medical decision-making was reviewed with the Resident Physician. I agree with the documented findings, disposition and treatment plan as described except to the extent set forth below. Pre-eclampsia, treated per Ob recommendations. Admitted to the hospital.
--- NOTE | 2018-05-18 23:01 | OB/GYN History & Physical ---
Date of Encounter: 05/18/18 Time of Encounter: 13:45 Assessment and Plan (1) Severe pre-eclampsia, Current visit: Yes Status: Acute Admit for observation and 24 hours magnesium sulfate for seizure ppx. Continue pt on labetalol dose from home. Will add aldomet 500mg BID as pt states that is what controlled her blood pressure after her last delivery. Anticipate discharge home after 24-48 hours if BP well controlled. History of Present Illness Chief complaint: preeclampsia HPI: Ms. Schmid is a 28 year old female presenting 5 days s/p delivery with c/o headache. She had elevated blood pressures at home starting last evening and headache this am. She reports she has also had epigastric discomfort for the last 2 days that she thought was just indigestion. Upon arrival to ED her blood pressure was found to be in the severe range despite pt taking extra labetalol at home this am. She reports that her headache is now 3/ 10. No other pain. Lochia light to moderate. Incision without redness or drainage per pt report. Past Med Surg Social Fam HX - Past Medical History Medical history: hypertension, migraine Additional medical history: palpatations, seasonal allergies, anxiety, gest diabetic Psychiatric history: anxiety - Past Surgical History Surgical History: appendectomy, , cholecystectomy Additional surgical history: wisdom teeth, tubes in ears - Social History Smoking Status: Never smoker Smokeless Tobacco Status: No Alcohol use: none Drug use: none - Family History Mother Living Status: Still Living Hx Family Cardiac Disorders: Yes (NM, HTN) Hx Family Respiratory Disorders: No Hx Family Cancer: No Hx Family GI Disorders: No Hx Family Endocrine Disorder: Yes (hypothyroidism) Hx Family Neuromuscular Disorders: No Hx Family Neurologic Disorders: No Hx Family HEENT Disorders: No Hx Family Autoimmune Disorders: No Obstetrical History - Pregnancies : 2 Para: 2 Term: 2 : 0 Ab's: 0 Livin Medications and Allergies Ascorbic Acid [Vitamin C] 1,000 mg PO DAILY 04/29/18 [History] Cetirizine HCl [Zyrtec] 10 mg PO DAILY 04/29/18 [History] Pnv Cmb#21/Iron/Folic Acid [ Complete Caplet] 1 each PO DAILY 04/29/18 [ History] raNITIdine HCl [Zantac] 150 mg PO BID 04/29/18 [History] Ferrous Sulfate [Iron] 325 mg PO DAILY 04/30/18 [History] Labetalol [Trandate] 200 mg PO TID 04/30/18 [History] Ibuprofen 800 mg PO Q8HR PRN #30 tablet 05/14/18 [Rx] OxyCODONE/APAP 5/325 [Percocet 5/325 MG] 1 each PO Q4HR PRN 7 Days #40 tablet [Rx] 3 Allergy/AdvReac Type Severity Reaction Status Date / Time watermelon Allergy Cough Uncoded 05/13/18 08:34 Review of System OB All systems PM: reviewed and no additional remarkable complaints except as stated Exam - Vital Signs Vital signs: Initial Vital Signs Temp Pulse Resp BP Pulse Ox 99.7 F H 68 18 195/102 98 05/18/18 13:14 05/18/18 13:14 05/18/18 13:14 05/18/18 13:14 05/18/18 13:14 - Constitutional Constitutional: well developed, well nourished, no acute distress - HEENT HEENT: Mucus Membranes Moist - Lungs Respiratory exam: CTAB - Cardiovascular Cardiovascular exam: RRR - Abdomen Abdomen: Present: non tender - Extremities Extremities exam: normal inspection, pedal edema (mild edema bilaterally) Deep Tendon Reflex Grade: 2+ Normal Results Result Diagrams: 05/18/18 14:03 05/18/18 14:03 Abnormal lab results Hgb 10.9 g/dL (11.5-15.4) L 05/18/18 14:03 Hct 33.3 % (35.3-44.9) L 05/18/18 14:03 MCH 27.7 pg (28.0-33.3) L 05/18/18 14:03 RDW 16.2 % (11.5-14.5) H 05/18/18 14:03 Chloride 109 mEq/L (98-107) H 05/18/18 14:03 Carbon Dioxide 22 mEq/L (23-29) L 05/18/18 14:03 All other labs normal.
[2018-05-19] MEDS: Magnesium Sulfate 20 gm/500mL 20 GM/500 ML IV.SOLN IVC SCH ×2 (02:05→10:34)
[2018-05-19 04:39] LABS: Basophils % 0.2 %; Eosinophils # 0.2 K/mcL (0.0-0.6); Hematocrit 31.9 % (35.3-44.9); Hemoglobin 10.5 g/dL (11.5-15.4); Lymphocytes # 1.8 K/mcL (0.6-4.6); Lymphocytes % 22.8 %; Mean Corpuscular HGB Conc 32.9 g/dL (31.6-35.5); Mean Corpuscular Hemoglobin 27.8 pg (28.0-33.3); Mean Corpuscular Volume 84.4 fL (83.0-100.0); Mean Platelet Volume 10.4 fL (9.4-12.4); Monocytes # 0.5 K/mcL (0.0-1.3); Monocytes % 6.4 %; Neutrophils # 5.4 K/mcL (1.6-8.9); Platelet Count 281 K/mcL (140-400); Red Blood Count 3.78 M/mcL (3.82-4.97); Red Cell Distribution Width 16.4 % (11.5-14.5); Segmented Neutrophils % 66.6 %
[2018-05-19 04:53] LABS: Alanine Aminotransferase 27 Units/L (7-52); Aspartate Amino Transferase 20 Units/L (13-39); BUN/Creatinine Ratio 9 (6-26); Blood Urea Nitrogen 5 mg/dL (6-20); Lactate Dehydrogenase 178 Units/L (140-271); eGFR For African Americans > 60 (> 60); eGFR For Non-African Americans > 60 (> 60)
[2018-05-19] MEDS ORDERED: Prenatal Vit/FA 1 EACH TABLET PO SCH (09:00)
[2018-05-19] MEDS: Acetaminophen 325 MG TABLET PO PRN (09:30)
--- NOTE | 2018-05-19 15:06 | Discharge Summary ---
Date of Encounter: 05/19/18 Time of Encounter: 15:04 - Discharge Diagnosis (1) Severe pre-eclampsia, Priority: Primary Status: Acute Comments: Has completed 24 hours of magnesium, blood pressures have decreased on new medications. Stable and appropriate for discharge. - Discharge Medications Prescriptions: Methyldopa [Aldomet] 500 mg PO BID #60 tablet Home Medications: Cetirizine HCl [Zyrtec] 10 mg PO DAILY 04/29/18 [History] Pnv Cmb#21/Iron/Folic Acid [ Complete Caplet] 1 each PO DAILY 04/29/18 [ History] raNITIdine HCl [Zantac] 150 mg PO BID 04/29/18 [History] Ferrous Sulfate [Iron] 325 mg PO DAILY 04/30/18 [History] Labetalol [Trandate] 200 mg PO TID 04/30/18 [History] Ibuprofen 800 mg PO Q8HR PRN #30 tablet 05/14/18 [Rx] OxyCODONE/APAP 5/325 [Percocet 5/325 MG] 1 each PO Q4HR PRN 7 Days #40 tablet [Rx] Acetaminophen [Tylenol] 650 mg PO Q6HR PRN tablet 05/19/18 [Rx] Docusate [Colace] 100 mg PO BID capsule 05/19/18 [Rx] Labetalol [Trandate] 200 mg PO TID tablet 05/19/18 [Rx] Methyldopa [Aldomet] 500 mg PO BID #60 tablet 05/19/18 [Rx] Vit/FA 1 each PO DAILY tablet 05/19/18 [Rx] Allergies/Adverse Reactions: 3 Allergy/AdvReac Type Severity Reaction Status Date / Time watermelon Allergy Cough Uncoded 05/13/18 08:34 Data Procedures and tests throughout hospitalization: Laboratory Tests 05/19/18 05/19/18 04:06 04:06 WBC 8.1 RBC 3.78 L Hgb 10.5 L Hct 31.9 L MCV 84.4 MCH 27.8 L MCHC 32.9 RDW 16.4 H Plt Count 281 MPV 10.4 Immature Gran % 1.0 Seg Neutrophils % 66.6 Lymphocytes % 22.8 Monocytes % 6.4 Eosinophils % 3.0 Basophils % 0.2 Neutrophils # 5.4 Lymphocytes # 1.8 Monocytes # 0.5 Eosinophils # 0.2 Basophils # 0.0 BUN 5 L Creatinine 0.53 L Est GFR ( Amer) > 60 Est GFR (Non-Af Amer) > 60 BUN/Creatinine Ratio 9 Uric Acid 8.0 H AST 20 ALT 27 Lactate Dehydrogenase 178 Labs on day of discharge: Labs from last 24 hours 05/19/18 05/19/18 04:06 04:06 WBC 8.1 RBC 3.78 L Hgb 10.5 L Hct 31.9 L MCV 84.4 MCH 27.8 L MCHC 32.9 RDW 16.4 H Plt Count 281 MPV 10.4 Immature Gran % 1.0 Seg Neutrophils % 66.6 Lymphocytes % 22.8 Monocytes % 6.4 Eosinophils % 3.0 Basophils % 0.2 Neutrophils # 5.4 Lymphocytes # 1.8 Monocytes # 0.5 Eosinophils # 0.2 Basophils # 0.0 BUN 5 L Creatinine 0.53 L Est GFR ( Amer) > 60 Est GFR (Non-Af Amer) > 60 BUN/Creatinine Ratio 9 Uric Acid 8.0 H AST 20 ALT 27 Lactate Dehydrogenase 178 Date of admission: 05/18/18 14:35 Primary care physician: Celestina Poole CNP Discharging clinician: Valerie Cleveland Anticipated date of discharge: 05/19/18 - Patient Status Disposition: Home, Self-Care Condition: Good Functional capacity at discharge: independent ambulation Overall status at discharge: patient is back to baseline - Discharge Instructions Instructions: Preeclampsia and Eclampsia (DC) Follow Up With: Celestina Poole CNP [Primary Care Provider] - Anali Li MD [Partnered Physician] - - Diet and Activity Activity: resume usual activities as tolerated Diet: regular diet Hospital 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 Will discharge home. Time Attestation: Total time spent providing and/or coordinating discharge services: Time Spent: Less than 30 minutes Exam - Constitutional Vitals: Temp Pulse Resp BP Pulse Ox 98.5 F 80 16 135/89 98 05/18/18 16:00 05/19/18 14:04 05/19/18 14:04 05/19/18 14:04 05/18/18 16:00 General appearance IM: A&O X 3 - Respiratory Respiratory exam: Present: CTAB - Cardiovascular Cardiovascular exam IM: Present: RRR - GI/Abdominal GI/Abdominal exam IM: soft - Extremities Exam Extremities exam IM: Present: normal capillary refill, normal inspection (+1DTR) - Neurological Exam Neurological exam: normal gait, oriented X3, reflexes normal (+1 DTR)
[2018-05-19 15:44] VITALS: BP 138/88
--- NOTE | 2018-05-19 16:43 | Electrocardiograph Report ---
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
== END 2018-05-19 15:50 | disposition home or self-care (01) ==
LOC: EMEROO 13:12 → INTOOBSV 14:35 → 1NENUOBS 14:35
PROVIDERS: ADMIT Registered Nurse; ATTEND Registered Nurse